=== PATIENT | male | born 1990 | race Caucasian/White ===

== ENCOUNTER 2023-03-26 17:16 | Emergency (ER) | payer MEDICAID, OTHER ==
[~2023-03-26] VITALS: Ht 177.8 cm; Wt 81.6 kg
[~2023-03-26 17:16] MED LIST: AMOX500C2 PO
[2023-03-26 18:30] VITALS: BP_SYST 116; PULSE 82; RESP 18; TEMP 98.2; O2SAT 98
[2023-03-26] MEDS ORDERED: IBUPROFEN 600 MG TABLET PO ONE (22:15)
[2023-03-26] MEDS ORDERED: DIPHTH,PERTUSS(ACELL),TET VAC 0.5 ML VIAL (Tdap) I.M. ONE (22:15)
[2023-03-26 22:22] VITALS: BP_SYST 116; PULSE 82; RESP 18; TEMP 98.2; O2SAT 98
== END 2023-03-26 22:22 | disposition home or self-care (01) ==
LOC: SED 17:16
DX: S61.012A Laceration without foreign body of left thumb without damage to nail, initial encounter (principal); Z79.899 Other long term (current) drug therapy; W26.0XXA Contact with knife, initial encounter; Y93.89 Activity, other specified; Y92.89 Other specified places as the place of occurrence of the external cause; Y99.8 Other external cause status
CPT/HCPCS: 90715; 99283